=== PATIENT | female | born 1945 | race Caucasian/White ===

== ENCOUNTER 2021-06-19 00:48 | Inpatient (IN) | payer MEDICARE, BC ==
[~2021-06-19] VITALS: Ht 167.6 cm; Wt 82.3 kg
[2021-06-19 01:13] LABS: BASOPHILS ABSOLUTE AUTO 0.06 K/mm3 (0.00-0.23); BASOPHILS PERCENT AUTO 0 % (0-2); EOSINOPHILS ABSOLUTE AUTO 0.22 K/mm3 (0.00-0.68); EOSINOPHILS PERCENT AUTO 1 % (0-6); Hematocrit 36.3 % (33.0-51.0); Hemoglobin 11.5 g/dL (11.5-16.0); IMMATURE GRAN ABSOLUTE AUTO 0.12 K/mm3 (0.00-0.10); IMMATURE GRAN PERCENT AUTO 1 % (0-1); LYMPHOCYTES ABSOLUTE AUTO 4.95 K/mm3 (0.84-5.20); LYMPHOCYTES PERCENT AUTO 29 % (21-46); MONOCYTES ABSOLUTE AUTO 1.26 K/mm3 (0.16-1.47); MONOCYTES PERCENT AUTO 7 % (4-13); Mean Corpuscular HGB 30.1 pg (26.0-34.0); Mean Corpuscular HGB Conc 31.7 g/dL (31.5-36.5); Mean Corpuscular Volume 95 fL (80-100); Mean Platelet Volume 10.9 fL (9.1-12.4); NEUTROPHILS ABSOLUTE AUTO 10.45 K/mm3 (1.96-9.15); NEUTROPHILS PERCENT AUTO 61 % (41-73); Platelet Count 337 K/mm3 (150-400); RDW Coefficient Variation 13.5 % (11.7-14.2); RDW Standard Deviation 46.7 fL (35.1-46.3); Red Blood Cell Count 3.82 M/mm3 (3.80-5.20); White Blood Cell Count 17.06 K/mm3 (4.00-11.30)
[2021-06-19 01:28] LABS: Albumin, Blood 3.1 g/dL (3.4-5.0); Albumin/Globulin Ratio 0.8 (0.8-1.8); Bilirubin, Total 0.6 mg/dL (0.1-1.0); Bun/Creatinine Ratio 31.3 (12.0-20.0); Calcium, Blood 8.4 mg/dL (8.5-10.1); Creatinine, Blood 0.93 mg/dL (0.40-1.00); Potassium, Blood 4.1 mmol/L (3.5-5.5); Total Protein, Blood 7.1 g/dL (6.4-8.2)
[2021-06-19 01:40] LABS: Source, Urine Straight Cath
[2021-06-19 01:43] LABS: Bilirubin, Urine Neg (Neg); Blood, Urine Neg (Neg); Glucose Qualitative, Urine 3+ (Neg); Ketones, Urine 1+ (Neg); Leukocyte Esterase, Urine 1+ (Neg); Nitrite, Urine Neg (Neg); Protein, Urine 2+ (Neg); Specific Gravity, Urine 1.025 (1.003-1.022); Urobilinogen, Urine NORM (Normal)
[2021-06-19 01:47] LABS: Appearance, Urine Clear (Clear); Color, Urine Yellow (P-Yellow)
[2021-06-19 01:48] LABS: Bacteria Few /hpf; Mucus Light (0-Heavy); Red Blood Cells, Urine Not Seen /hpf (0-2); Squamous Epithelial Cells Few /hpf (Few)
[2021-06-19 01:49] LABS: PCO2 Arterial 39.9 mmHg (35-45); PO2 Arterial 65.4 mmHg (80-100); pH Blood Arterial 7.32 (7.35-7.45)
[2021-06-19] MEDS ORDERED: Isosorbide Mono30 MG PO (02:01)
[2021-06-19] MEDS ORDERED: AMLO5 PO (02:02)
[2021-06-19] MEDS ORDERED: ATOR80 PO (02:02)
[2021-06-19] MEDS ORDERED: ATEN25 PO (02:02)
[2021-06-19] MEDS ORDERED: CLOP75 PO (02:03)
[2021-06-19] MEDS ORDERED: EZET10 PO (02:03)
[2021-06-19] MEDS ORDERED: LISI20 PO (02:04)
[2021-06-19] MEDS ORDERED: HYDCHL25 PO (02:04)
[2021-06-19] MEDS ORDERED: CENTRUM SILVER1 EAC2 PO (02:05)
[2021-06-19] MEDS ORDERED: Calcium Carbon500 MG PO (02:10)
[2021-06-19 02:33] LABS: Influenza A, PCR NEGATIVE (NEGATIVE); Influenza B, PCR NEGATIVE (NEGATIVE); Resp Syncytial Virus, PCR NEGATIVE (NEGATIVE); SARS-Cov-2 (COVID-19) PCR, MMC NEGATIVE (NEGATIVE)
[2021-06-19] MEDS ORDERED: THERA-D2000 UNIT PO (02:39)
[2021-06-19] MEDS ORDERED: RANEXA1000 M4 PO (02:40)
[2021-06-19] MEDS ORDERED: METF500 PO (02:41)
[2021-06-19] MEDS ORDERED: MAGNESIUM250 MG PO (02:45)
[2021-06-19] MEDS ORDERED: ASPI325 PO (02:46)
[2021-06-19] MEDS ORDERED: Selenomax200 MCG PO (02:46)
[2021-06-19] MEDS ORDERED: NITR.4SL SL (02:47)
[2021-06-19 04:14] LABS: Anti-Xa UFH, PHA Monitoring <0.10 IU/mL; International Normalized Ratio 0.99; Prothrombin Time Results 10.4 Sec (9.7-11.5)
--- NOTE | 2021-06-19 04:20 | NUR ---
ARRIVAL TO ICU PT BROUGHT TO ICU AT THIS TIME. SHE IS INTUBATED WITH 7.5 TUBE, 24CM AT TEETH. VENT SETTINGS 16/450/8/50%. SHE IS RECEIVING PROPOFOL 10MCG/KGMIN. UPON ARRIVAL, SHE WAS ABLE TO SOMEWHAT OPEN EYES, NOD/SHAKE HEAD, SQUEEZE HANDS AND WIGGLE TOES. SHE DENIED PAIN BUT NODDED HEAD YES TO DISCOMFORT. PROPOFOL TITRATED TO 20MCG/KG/MIN. HEPARIN STARTED PER PHARMACY ORDER AT 15UNITS/HR WITH WEIGHT 84KG. LUNG SOUNDS CLEAR THROUGHOUT. POWERS PATENT AND DRAINING CLEAR/YELLOW URINE. VSS AT THIS TIME. SEE SHIFT ASSESSMENT.
--- NOTE | 2021-06-19 08:00 | NUR ---
PT INTUBATED WITH 7.5 ETT/24 @ TEETH. FOLLOWS SOME SIMPLE COMMANDS WITH PROPOFOL @ 25 MCG/KG/MIN. SOFT WRIST RESTRAINTS IN PLACED TO PREVENT ACCIDENTAL EXTUBATION/PULLING ON LINES AND TUBES. PT IS AFEBRILE-ECG SHOWS SR WITH RATE 60-70'S.SBP TRENDING 120'S. DR. UNDERWOOD HAS BEEN CONSULTED, BUT HAS NOT YET SEEN PT. WILL DISCUSS RANEXA AND IMDUR WITH HER THESE MEDS CAN'T BE CRUSHED. NO NOTED EDEMA. LUNGS DIMINISHED IN THE BASES, VENT:AC 16, RR 16-22, TV 450, PEEP 8, FIO2 45%-SATS>90% CARRIAGE OPERATOR HAS BEEN CONSULTED, BUT HAS NOT YET SEEN PT. OGT CLAMPED AFTER ROUTINE AM MEDS GIVEN. ABDOMEN IS OBESE, BUT SOFT WITH HYPOACTIVE BT'S X 4. POWERS TO BSD WITH 150 CC CLEAR, YELLOW, URINE TO UROMETER. SKIN IS PALE, WARM, AND DRY-NO NOTED SKIN BREAKDOWN. PT DAUGHTERS AT BEDSIDE. UPDATED TO CURRENT STATUS AND PLAN OF CARE.
--- NOTE | 2021-06-19 08:14 | NUR ---
DR. MANRIQUE AT BEDSIDE. UPDATE GIVEN. DR. MANRIQUE UPDATING FAMILY AND FURTHER DISCUSSING PLAN OF CARE.
--- NOTE | 2021-06-19 10:45 | NUR ---
DR. DELATORRE HERE TO SEE PT. V.O. TO HOLD RANEXA AND IMDUR UNTIL PT TAKING PO MEDS.
--- NOTE | 2021-06-19 12:00 | NUR ---
MAP TRENDING 60-PT GRIMACING WITH ORAL CARE AND REPOSITIONING. MED WITH FENTANYL 50 MCG IVP FOR PAIN/SEDATION ADJUNCT. PROPOFOL DRIP TITRATED DOWN TO 15 MCG/KG/MIN. ECG CONTINUES SR WITH RATE 70'S. LUNGS DIMINISHED IN THE BASES. NO VENT CHANGES-MAINTAINS SATS>90% ON FIO2 40%. SUCTION PRODUCTIVE OF SMALL AMOUNT OF THICK, OLD, BLOODY SPUTUM. OGT REMAINS CLAMPED. POWERS CONTINUES TO DRAIN ADEQUATE AMOUNT OF CLEAR, YELLOW URINE. PT DAUGHTER,SPOUSE, [id number], AND SISTER AT BEDSIDE. DR. NUNN SPOKE WITH THEM AT LENGTH REGARDING PLAN OF CARE. NO DECISION HAS BEEN MADE AT THIS POINT. FAMILY IS CAREFULLY CONSIDERING ANGIOGRAM VS. MEDICAL MANAGEMENT.
--- NOTE | 2021-06-19 13:20 | NUR ---
PT AWAKE, ALERT, GRIMACING, COUGHING, AND TRYING TO MOUTH WORD. PT ABLE TO NOD APPROPRIATELY TO "YES" OR "NO" QUESTIONS-WITH PROPOFOL @ 15MCG/KG/MIN. PT DAUGHTER TAWANA COMMUNICATED WITH PT AND ULTIMATELY, PT CONSENTS FOR ANGIOGRAM. PT MED WITH FENTANYL 50 MCG IVP X 1 FOR PAIN/SEDATION ADJUNCT. PROPOFOL DRIP TITRATED UP TO 25 MCG/KG/MIN.
--- NOTE | 2021-06-19 14:30 | NUR ---
PT TO [facility]ART [facility]ENTER FOR ANGIOGRAM-RN AND RT AT BEDSIDE.
--- NOTE | 2021-06-19 16:45 | NUR ---
RETURNED FROM HEART CENTER. S/P PTCA WITH STENT X 2. ONE TO RCA AND ONE TO MID LAD. PT REMAINS INTUBATED AND SEDATED. ECG SHOWS SR WITH FIRST DEGREE AV BLOCK WITH OCCASIONAL PAC/PVC'S. MAP TRENDING >65. PT RECEIVED 20 MG OF LASIX DURING PROCEDURE-URINE OUTPUT 1850 CC THIS SHIFT. LUNGS DIMINISHED IN THE BASES. SATS>90% ON FIO2 40%. OGT REMAINS CLAMPED NO GI DISTRESS. RIGHT FEMORAL ARTEREOTOMY SITE WITH PERCLOSE. RIGHT IS SOFT AND NONTENDER. NO HEMATOMA OR ACTIVE BLEEDING.
--- NOTE | 2021-06-19 19:19 | NUR ---
ASSUMPTION OF CARE PT REMAINS INTUBATED WITH VENT SETTINGS AC/VC 16/450/8/40%. SHE IS RECEIVING PROPOFOL 25MCG/KG/MIN AND NS TKO. R GROIN ACCESS SITE VISUALIZED WITH DAY SHIFT RN. SITE HAS SMALL BRUISE, SURROUNDING SKIN SOFT, NO ACTIVE BLEEDING AND TEGADERM CHG IN PLACE. POWERS PATENT AND DRAINING. VSS. SEE SHIFT ASSESSMENT.
[2021-06-20 03:58] LABS: BASOPHILS ABSOLUTE AUTO 0.04 K/mm3 (0.00-0.23); BASOPHILS PERCENT AUTO 0 % (0-2); EOSINOPHILS ABSOLUTE AUTO 0.36 K/mm3 (0.00-0.68); EOSINOPHILS PERCENT AUTO 3 % (0-6); Hematocrit 26.5 % (33.0-51.0); Hemoglobin 8.4 g/dL (11.5-16.0); IMMATURE GRAN ABSOLUTE AUTO 0.05 K/mm3 (0.00-0.10); IMMATURE GRAN PERCENT AUTO 0 % (0-1); LYMPHOCYTES ABSOLUTE AUTO 2.67 K/mm3 (0.84-5.20); LYMPHOCYTES PERCENT AUTO 23 % (21-46); MONOCYTES ABSOLUTE AUTO 1.14 K/mm3 (0.16-1.47); MONOCYTES PERCENT AUTO 10 % (4-13); Mean Corpuscular HGB 29.8 pg (26.0-34.0); Mean Corpuscular HGB Conc 31.7 g/dL (31.5-36.5); Mean Corpuscular Volume 94 fL (80-100); Mean Platelet Volume 10.6 fL (9.1-12.4); NEUTROPHILS ABSOLUTE AUTO 7.54 K/mm3 (1.96-9.15); NEUTROPHILS PERCENT AUTO 64 % (41-73); Platelet Count 244 K/mm3 (150-400); RDW Coefficient Variation 14.3 % (11.7-14.2); RDW Standard Deviation 48.7 fL (35.1-46.3); Red Blood Cell Count 2.82 M/mm3 (3.80-5.20)
[2021-06-20 04:18] LABS: Bun/Creatinine Ratio 23.8 (12.0-20.0); Creatinine, Blood 1.01 mg/dL (0.40-1.00); Phosphorus, Blood 3.1 mg/dL (2.5-4.9); Potassium, Blood 3.1 mmol/L (3.5-5.5)
--- NOTE | 2021-06-20 06:02 | NUR ---
SHIFT SUMMARY PT REMAINS INTUBATED WITH VENT SETTINGS AC/VC 16/450/8/35%. SHE IS RECEIVING PROPOFOL 30MCG/KG/MIN AND NS TKO. SHE WAKENS TO VERBAL STIMULI, OPENS EYES AND MAKES PURPOSEFUL MOVEMENT WITH EXTREMITIES. POWERS IS PATENT AND DRAINING TO GRAVITY WITH SHIFT OUTPUT OF 700ML. R GROIN ACCESS SITE WNL, SMALL UNCHANGED BRUISE, SURROUNDING AREA SOFT TO PALPATION AND TEGADERM IN PLACE. TMAX 100.9, CURRENT TEMP 99.2. WILL REPORT TO ONCOMING RN.
--- NOTE | 2021-06-20 08:30 | NUR ---
INITIAL ASSESSMENT PATIENT INTUBATED AND ON SEDATION. PATIENT RESPONDS TO VERBAL STIMULI AND ABLE TO SQUEEZE WITH HANDS AND WIGGLE/ LIFT FEET TO COMMAND. PAIMIUT IN R EAR- HEARING AID CHARGING ON COUNTER. SCLERAL EDEMA NOTED. PATIENT HAS TEMP OF 99.2 DEGREES FAHRENHEIT. PATIENT SHAKES HEAD "NO" WHEN ASKED IF IN PAIN. PATIENT ON AC 16, TV 450, PEEP 5 AND 30% FIO2. LUNGS WHEEZY IN UPPER LOBES AND CLEAR IN LOWER LOBES. SCANT AMOUNT OF THIN, [place] SECRETIONS NOTED FROM ETT. PATIENT IN SR, HR 60S TO 90S. SBP LOW 100S TO 120S. MURMUR NOTED. 1+ EDEMA NOTED TO BLES. OG IN PLACE; CLAMPED. NORMOACTIVE BOWEL SOUNDS NOTED. DATE OF LAST BM UNKNOWN. TEMP PROBE POWERS IN PLACE DRAINING YELLOW COLORED URINE. PATIENT RECEIVING SCHEDULED LASIX. SKIN PALE AND COOL. PERCLOSE TO R FEM- SMALL BRUISE NOTED. NO BLEEDING OR HEMATOMA NOTED. PROPOFOL AT 30 MCG/ KG/ HOUR, NS TKO. BED LOW, CALL LIGHT IN REACH. DAUGHTER AT BEDSIDE. WILL CONTINUE TO MONITOR.
--- NOTE | 2021-06-20 09:42 | NUR ---
PATIENT EXTUBATED WITH RT AND DR. MANRIQUE AT BEDSIDE AFTER PASSING SEDATION VACATION AND WEAN THIS AM. PATIENT SATTING 100% ON 2 L NC. DAUGHTER AT BEDSIDE. RESTRAINTS REMOVED. PATIENT STATES SHE IS MUCH MORE COMFORTABLE AFTER GETTING TUBE OUT.
[2021-06-20 11:44] LABS: Hematocrit 29.3 % (33.0-51.0); Hemoglobin 9.5 g/dL (11.5-16.0); Mean Corpuscular HGB 30.1 pg (26.0-34.0); Mean Corpuscular HGB Conc 32.4 g/dL (31.5-36.5); Mean Corpuscular Volume 93 fL (80-100); Mean Platelet Volume 10.5 fL (9.1-12.4); Platelet Count 261 K/mm3 (150-400); RDW Coefficient Variation 14.1 % (11.7-14.2); RDW Standard Deviation 48.2 fL (35.1-46.3); Red Blood Cell Count 3.16 M/mm3 (3.80-5.20); White Blood Cell Count 14.14 K/mm3 (4.00-11.30)
--- NOTE | 2021-06-20 12:00 | NUR ---
PATIENT HAS TEMP OF 99.9 DEGREES FAHRENHEIT. APHASIA PRESENT AND TREMORS NOTED IN L HAND WHEN USING; PATIENT AND FAMILY STATED THIS HAS BEEN HER BASELINE SINCE HER PAST CVA OCCURRED. PATIENT FAILED SWALLOW EVAL. DR. MANRIQUE INFORMED. HR IN THE 80S. SBP 1-TEENS TO 130S. OG REMOVED WHEN EXTUBATED THIS AM. GROIN SITE STABLE; NO CHANGES. BLOOD SUGAR OF 156; COVERAGE GIVEN. FAMILY REMAINS AT BEDSIDE.
--- NOTE | 2021-06-20 16:00 | NUR ---
PATIENT HAS TEMP OF 99.7 DEGREES FAHRENHEIT. HR 80S TO LOW 100S. SBP IN THE 130S. PATIENT DECREASED TO 1 L NC. GROIN SITE REMAINS UNCHANGED.
[2021-06-20] MEDS ORDERED: Cranberry400 MG PO (17:03)
[2021-06-20] MEDS ORDERED: Garlic500 MG PO (17:05)
[2021-06-20] MEDS ORDERED: INSULANI SC (17:07)
[2021-06-20] MEDS ORDERED: NOVOLOG100 UNIT/3 SQ (17:07)
--- NOTE | 2021-06-20 19:25 | NUR ---
ASSESSMENT/ASSUMED CARE PT RESTING QUIETLY. OPENS EYES TO VERBAL STIMULI. SPEECH CLEAR BUT SLOW. HX CVA. PT A&O X4. DENIES PAIN AT THIS TIME. HEART RATE 90-100'S. BP STABLE. DENEIS CHEST PAIN OR PRESSURE. WEAK CUSTOMER SERVICE ASSISTANT BUT EQUAL. TRACE BILAT LOWER EXT EDEMA. PULSES PRESENT. MOVES ALL EXT. RIGHT GROIN WITH PERCLOSE SITE. DRSG INTACT. SITE SOFT TO PALPATION. NO BLEEDING OR HEMATOMA NOTED. LUNGS CLEAR BUT DECREASED IN THE BASES ON 1 LITER O2 VIA NC. RESP EVEN AND NONLABORED. OCC NONPRODUCTIVE COUGH NOTED. BT+ ABD SOFT AND NONTENDER. DENIES N/V. WILL DO BEDSIDE SWALLOW EVAL TONIGHT. POWER GLIDE TO LEFT UPPER ARM WITH DRSG INTACT. SITE CLEAER. HEPARIN IN FUSING AT 15 UNITS/KG/HR. NEXT LAB DRAW AT 2300. IV 20G TO RIGHT AC WITH NS AT 20 ML/HR AND KCL. POWERS CATH PATENT DRAINING CLEAR YELLOW URINE. PT REPOSITIONED AND HOB UP.
--- NOTE | 2021-06-20 19:26 | NUR ---
SHIFT SUMMARY PATIENT EXTUBATED IN AM. PATIENT HAS BEEN ORIENTED BUT HAS DIFFICULTY COMMUNICATING HAS APHASIA AFTER PAST CVA. PATIENT HAD TMAX OF 100.4 DEGREES FAHRENHEIT THIS SHIFT BUT ALSO DOES NOT WANT PILES OF BLANKETS TAKEN OFF OF HER. PATIENT GIVEN PRN FENTANYL A FEW TIMES THIS SHIFT FOR COMPLAINTS OF PAIN IN BACK AND R LEG. PATIENT STATES R LEG CALF PAIN IS NORMAL FOR HER AT BASELINE AT HOME AND THAT SHE NORMALLY TAKES PAIN MEDS FOR IT. PATIENT SATTING 90% AND GREATER ON 1-2 L NC. PATIENT REMAINED IN SR, HR 60S TO LOW 100S. SBP LOW 100S TO 140S. NO BM THIS SHIFT. PATIENT REMAINS NPO FAILED BEDSIDE NURSE SWALLOW EVAL. PATIENT TO HAVE TEST AGAIN AT 2100. POWERS DRAINED 2590 MLS OF URINE THIS SHIFT. PATIENT REMAINS RECEIVING SCHEDULED DIURETIC. NO CHANGES TO SKIN NOTED. R FEM REMAINS WNL/ UNCHANGED. HEPARIN STARTED THIS SHIFT AND IS INFUSING AT 15 UNITS/ KG/ HOUR. PATIENT RECEIVED KCL REPLACEMENTS THIS SHIFT. BLOOD SUGARS 156 AND 141. FAMILY IN ROOM ALL OF SHIFT. REPORT GIVEN TO ASSUMING INSPECTOR TUBES NURSE.
--- NOTE | 2021-06-20 20:51 | NUR ---
BEDSIDE SWALLOW EVAL PT FAILED BEDSIDE SWALLOW EVAL, COUGHING AND CLEARING THROAT AFTER TAKING SIPS OF WATER. PT NPO. WILL TRY BEDSIDE SWALLOW EVAL AGAIN IN AM.
--- NOTE | 2021-06-20 22:27 | NUR ---
TEMP PT TEMP 100.5. REMOVED 3 EXTRA BLANKETS WHEN REPOSITIONING.
--- NOTE | 2021-06-20 23:16 | NUR ---
FEVER TYLENOL 650 MG SUPP GIVEN FOR TEMP 100.6
[2021-06-21 04:52] LABS: BASOPHILS ABSOLUTE AUTO 0.04 K/mm3 (0.00-0.23); BASOPHILS PERCENT AUTO 0 % (0-2); EOSINOPHILS ABSOLUTE AUTO 0.18 K/mm3 (0.00-0.68); EOSINOPHILS PERCENT AUTO 2 % (0-6); Hematocrit 28.7 % (33.0-51.0); Hemoglobin 9.2 g/dL (11.5-16.0); IMMATURE GRAN ABSOLUTE AUTO 0.05 K/mm3 (0.00-0.10); IMMATURE GRAN PERCENT AUTO 0 % (0-1); LYMPHOCYTES ABSOLUTE AUTO 1.83 K/mm3 (0.84-5.20); LYMPHOCYTES PERCENT AUTO 15 % (21-46); MONOCYTES ABSOLUTE AUTO 0.89 K/mm3 (0.16-1.47); MONOCYTES PERCENT AUTO 7 % (4-13); Mean Corpuscular HGB 29.5 pg (26.0-34.0); Mean Corpuscular HGB Conc 32.1 g/dL (31.5-36.5); Mean Corpuscular Volume 92 fL (80-100); Mean Platelet Volume 10.3 fL (9.1-12.4); NEUTROPHILS ABSOLUTE AUTO 9.25 K/mm3 (1.96-9.15); NEUTROPHILS PERCENT AUTO 76 % (41-73); Platelet Count 274 K/mm3 (150-400); RDW Coefficient Variation 13.7 % (11.7-14.2); RDW Standard Deviation 46.5 fL (35.1-46.3); Red Blood Cell Count 3.12 M/mm3 (3.80-5.20); White Blood Cell Count 12.24 K/mm3 (4.00-11.30)
[2021-06-21 05:19] LABS: Anion Gap 9 mmol/L (6-16); Blood Urea Nitrogen 16 mg/dL (8-24); Bun/Creatinine Ratio 20.9 (12.0-20.0); CO2, Blood 25 mmol/L (21-32); Calcium, Blood 8.3 mg/dL (8.5-10.1); Chloride, Blood 108 mmol/L (98-108); Creatinine, Blood 0.77 mg/dL (0.40-1.00); Glomerular Filtration Rate >60 (60-); Glucose, Blood 170 mg/dL (70-99); Potassium, Blood 3.5 mmol/L (3.5-5.5); Sodium, Blood 142 mmol/L (136-145)
--- NOTE | 2021-06-21 05:50 | NUR ---
SHIFT SUMMARY PT RESTING QUIETLY. DENIES PAIN OR DISCOMFORT. TURNED Q2HRS. FAILED BEDSIDE SWALLOW EVAL, WILL HAVE DAY SHIFT RN RETRY THIS AM. PT FOLLOWING INSTRUCTIONS AND ASSISTING WITH TURNING. FEVER DURING THE NIGHT 100.7, TYLENOL SUPP GIVEN NOW TEMP DOWN TO 98.5. HEART RATE 90-100'S. BP STABLE. LUNGS CLEAR BUT DECREASED IN THE BASES ON 1 LITER O2 VIA NC. RESP EVEN AND NONLABORED. PT CONT NPO. HEPARIN STOPPED AT 0520 DUE TO CRITICAL HIGH ANTI XA. WILL RESTART AT A LOWER RATE AT 0620. POWERS CATH PATENT DRAINING CLEAR YELLOW URINE. PT MED TWICE DURING THE NIGHT FOR ELEVATED BLOOD GLUCOSE. REPORT TO ON COMING NURSE.
--- NOTE | 2021-06-21 06:23 | NUR ---
HEPARIN RESTARTED HEPARIN AT 11 UNITS/KG/HR. NEXT ANTI XA AT 1300
--- NOTE | 2021-06-21 08:00 | NUR ---
INITIAL ASSESSMENT PATIENT ALERT AND ORIENTED. APHASIA AND L HAND TREMOR BASELINE POST CVA. [place] IN R EAR; HEARING AID PLACED. DENIES PAIN. AFEBRILE. SATTING 90% AND GREATER ON 1 L NC. IN SR, HR IN THE 80S. SBP IN THE 130S. DATE OF LAST BM UNKNOWN. PATIENT REMAINS NPO. SWALLOW EVAL TO BE PERFORMED THIS AM. POWERS DRAINING YELLOW COLORED URINE. R FEM SITE WNL- SMALL BRUISE, NO BLEEDING OR HEMATOMA NOTED. HEPARIN INFUSING AT 11 UNITS/ KG/ HOUR. DAUGHTER IN ROOM. BED LOW, CALL LIGHT IN REACH. WILL CONTINUE TO MONITOR PATIENT T/O SHIFT.
--- NOTE | 2021-06-21 10:08 | NUR ---
REPORT GIVEN TO ASSUMING PCU NURSE. PATIENT TRANSFERRED TO PCU 05.
--- NOTE | 2021-06-21 10:31 | NUR ---
TRANSFER NOTE: Pt arrived to room PCU 5 from ICU. Pt A/Ox4. LS With wheezing throughout, croupy cough noted with no production. HR reg, tachy rate in the 110's per monitor. Murmur noted. BT hyperactive. PUlses plap. Cap refil <3 sec. Pt denies pain. States her breathing is "ok". Pt is on 1L per n/c. Suazo cath draining clear, yellow urine. Pt is NPO at this time. Barrium swallow scheduled for 10:30. Pt taken to imaging. Will await return.
--- NOTE | 2021-06-21 14:50 | NUR ---
Spiritual Care Visit Visit occured right after transfer to PCU5. Pt. is in bed and welcomes my visit. Pt. does not display visceral pain. Establish rapport and give pastroal licensed professional counselor. Pt. displays evidence of peace and trust. [place] with Pt. Pt. verbalizes gratitude for the spiritual care visit.
--- NOTE | 2021-06-21 17:37 | NUR ---
SHIFT SUMMARY; Pt sitting up in chair eating dinner. Has done well since arrival to unit. Had isaacum swallow and was able to have diet increased. Pt worked with PT/OT. Was able to titrate off of oxygen. Pt was given IS education and demonstrated back. VSS. Stable at end of shift. Will report to night RN.
[2021-06-22 04:52] LABS: BASOPHILS ABSOLUTE AUTO 0.04 K/mm3 (0.00-0.23); BASOPHILS PERCENT AUTO 0 % (0-2); EOSINOPHILS ABSOLUTE AUTO 0.56 K/mm3 (0.00-0.68); EOSINOPHILS PERCENT AUTO 4 % (0-6); Hematocrit 29.5 % (33.0-51.0); Hemoglobin 9.4 g/dL (11.5-16.0); IMMATURE GRAN ABSOLUTE AUTO 0.08 K/mm3 (0.00-0.10); IMMATURE GRAN PERCENT AUTO 1 % (0-1); LYMPHOCYTES ABSOLUTE AUTO 2.46 K/mm3 (0.84-5.20); LYMPHOCYTES PERCENT AUTO 18 % (21-46); MONOCYTES ABSOLUTE AUTO 1.09 K/mm3 (0.16-1.47); MONOCYTES PERCENT AUTO 8 % (4-13); Mean Corpuscular HGB 29.8 pg (26.0-34.0); Mean Corpuscular HGB Conc 31.9 g/dL (31.5-36.5); Mean Corpuscular Volume 94 fL (80-100); Mean Platelet Volume 10.6 fL (9.1-12.4); NEUTROPHILS ABSOLUTE AUTO 9.38 K/mm3 (1.96-9.15); NEUTROPHILS PERCENT AUTO 69 % (41-73); Platelet Count 303 K/mm3 (150-400); RDW Coefficient Variation 13.6 % (11.7-14.2); RDW Standard Deviation 46.5 fL (35.1-46.3); Red Blood Cell Count 3.15 M/mm3 (3.80-5.20); White Blood Cell Count 13.61 K/mm3 (4.00-11.30)
[2021-06-22 05:11] LABS: Anion Gap 7 mmol/L (6-16); Blood Urea Nitrogen 16 mg/dL (8-24); Bun/Creatinine Ratio 23.4 (12.0-20.0); CO2, Blood 28 mmol/L (21-32); Calcium, Blood 8.6 mg/dL (8.5-10.1); Chloride, Blood 106 mmol/L (98-108); Creatinine, Blood 0.69 mg/dL (0.40-1.00); Glomerular Filtration Rate >60 (60-); Glucose, Blood 184 mg/dL (70-99); Potassium, Blood 3.2 mmol/L (3.5-5.5); Sodium, Blood 141 mmol/L (136-145)
--- NOTE | 2021-06-22 05:12 | NUR ---
SHIFT SUMMARY PT RESTED WELL THROUGH THE NIGHT. ALERT AND ORIENTED, ABLE TO MAKE NEEDS KNOWN. COOPERATIVE WITH PLAN OF CARE. TELE READS NSR, NO CP. O2 >95% ON ROOM AIR-2LNC. POWERS IN PLACE. NO BM - MIRALAX AND "BROWN COW" COMBO GIVEN - NO BM AFTER THAT. C/O COUGH - GOT PRN COUGH MEDS ORDERED. CALL LIGHT WITHIN REACH, BED IN LOWEST POSITION. WILL CONITUE TO MONITOR.
--- NOTE | 2021-06-22 13:13 | NUR ---
ADVANCE DIET NOTE ORDERS FROM DR. REED GIVEN TO ADVANCE PT DIET FROM [facility] SOFT TO ADA. UPON BEDSIDE SWALLOW EVAL PT APPEARED TO TOLERATE SIP OF WATER WELL WHILE DR WAS IN ROOM. WILL CONTINUE TO MONITOR.
--- NOTE | 2021-06-22 17:27 | NUR ---
SHIFT SUMMARY PT HAS REMAINED ALERT AND ORIENTED X 4 T/O SHIFT. SHE IS HARD OF HEARING AND HAS EXPRESSIVE APHASIA FROM PREVIOUS STROKE BUT WILL ANSWER QUESTIONS APPROPRIATELY. SPO2 HAS MAINTAINED >95% VIA RA, VITAL SIGNS ARE STABLE. RIGHT GROIN SITE HAS REMAINED UNCHANGED T/O SHIFT, IT HAS MINIMAL BRUISING AND NO APPARENT HEMATOMA OR BLEEDING. POWERS CATHETER WAS REMOVED THIS AFTERNOON PER ORDERS BY DECK MOLDER HARSHA, SUPERVISED BY THIS NURSE AND DECK MOLDER INSTRUCTOR. PT HAS VOIDED 1X SINCE CATHETER REMOVAL. SHE CONTINUED TO DENY CHEST PAIN/PRESSURE T/O SHIFT WELL DENIED FEELINGS OF NAUSEA, VOMITTING, OR OTHER PAIN. SHE HAS BEEN IN CHAIR FOR MAJORITY OF SHIFT AND IS A SBA TO AMBULATE. FAMILY HAS BEEN AT BEDSIDE FOR MAJORITY OF SHIFT. DAUGHTER TAWANA IS INVOLVED IN CARE AND WAS AT BEDSIDE. POWERGLIDE IN ANDREA AND 20G IN RIGHT FOREARM ARE SALINE LOCKED.
--- NOTE | 2021-06-23 05:11 | NUR ---
SHIFT SUMMARY PT ALERT AND ORIENTED X4. FAMILY LEAVING BEDSIDE AT SHIFT CHANGE.PT COOPERATIVE AND PLESANT DURING INTERACTION. VSS THROUGHOUT SHIFT. NORMAL SINUS RHYTHM WITH HEART RATE IN 60 - 70'S. PT DENIES CHEST PAIN OR CHEST PRESSURE. DENIES SOB. PT REPORTS THAT SHE WENT TO THE BATHROOM TWICE, NO CHANGES IN URINATION. REPORTS THAT STOOL IS A LITTLE HARD BUT THAT SHE WAS ABLE TO HAVE A BM. PT DID NOT WANT TO TAKE NIGHTTIME MIRALAX, STATED SHE "FELT SHE DID NOT NEED IT AND COULD GO ON HER OWN." PT RESTED THROUGHOUT MOST OF THE SHIFT. BED IN LOWEST POSITIION AND CALL LIGHT WITHIN REACH. WILL CONTINUE TO MONITOR AND REPORT TO ONCOMING RN
--- NOTE | 2021-06-23 05:48 | NUR ---
PT REPORTS SHE HAS BEEN INDEPENDENTLY USING THE RESTROOM. REPORTS VOIDING X2 WITH NO CHANGES. DENIES PAIN, BURNING OR CHANGE IN FREQUENCY. PT ALSO REPORTS SMALL BM. PT REPORTS STOOL WAS SMALL AND HARD.
[2021-06-23 08:46] LABS: BASOPHILS ABSOLUTE AUTO 0.04 K/mm3 (0.00-0.23); BASOPHILS PERCENT AUTO 0 % (0-2); EOSINOPHILS ABSOLUTE AUTO 0.66 K/mm3 (0.00-0.68); EOSINOPHILS PERCENT AUTO 7 % (0-6); Hemoglobin 9.6 g/dL (11.5-16.0); IMMATURE GRAN ABSOLUTE AUTO 0.03 K/mm3 (0.00-0.10); IMMATURE GRAN PERCENT AUTO 0 % (0-1); LYMPHOCYTES ABSOLUTE AUTO 2.17 K/mm3 (0.84-5.20); LYMPHOCYTES PERCENT AUTO 22 % (21-46); MONOCYTES PERCENT AUTO 9 % (4-13); Mean Corpuscular HGB 29.9 pg (26.0-34.0); Mean Corpuscular Volume 94 fL (80-100); Mean Platelet Volume 10.4 fL (9.1-12.4); NEUTROPHILS ABSOLUTE AUTO 5.96 K/mm3 (1.96-9.15); NEUTROPHILS PERCENT AUTO 61 % (41-73); Platelet Count 358 K/mm3 (150-400); RDW Coefficient Variation 13.2 % (11.7-14.2); RDW Standard Deviation 45.8 fL (35.1-46.3); Red Blood Cell Count 3.21 M/mm3 (3.80-5.20); White Blood Cell Count 9.76 K/mm3 (4.00-11.30)
[2021-06-23 09:02] LABS: Bun/Creatinine Ratio 18.7 (12.0-20.0); Calcium, Blood 8.8 mg/dL (8.5-10.1); Creatinine, Blood 0.7 mg/dL (0.40-1.00); Magnesium, Blood 2.2 mg/dL (1.6-2.4); Potassium, Blood 3.8 mmol/L (3.5-5.5)
[2021-06-23] MEDS ORDERED: METO25 PO (14:55)
[2021-06-23] MEDS ORDERED: MASOPHEN325 M3 PO (14:58)
[2021-06-23] MEDS ORDERED: ELIQUIS2.5 MG PO (14:59)
[2021-06-23] MEDS ORDERED: FURO40 PO (15:00)
[2021-06-23] MEDS ORDERED: MIRALAX17 GM PO (15:01)
[2021-06-23] MEDS ORDERED: POTA10T PO (15:03)
--- NOTE | 2021-06-23 18:24 | NUR ---
DISCHARGE UPDATE DISCHARGE PACKET GONE OVER WITH PT AND PT DAUGHTER AT 1730. PT AND DAUGHTER EDUCATED ON INSULIN SLIDING SCALE AND ADMINISTRATION BASED OFF OF BLOOD SUGAR LEVELS. PT USED TEACH BACK METHOD TO DEMONSTRATE UNDERSTANDING. PT EDUCATED ON PROPER ADMINISTRATION OF INSULIN, STRESSING ON THE IMPORTANCE OF INFECTION PREVENTION AND PRIMING THE NEEDLES. PT VERBALIZED UNDERSTANDING. DICHARGE PACKET IN BAG AND WITH DAUGHTER DURING DISCHARGE. DISCHARGE PACKET INCLUDED INFORMATION PACKETS ON INSULINS, INSULIN ADMINISTRATION, AND SLIDING SCALES. PT LEFT UNIT AT 1816 VIA WHEELCHAIR AND ON RA. PT ABLE TO DRESS SELF AND TRANSFER SELF TOP AND FROM WHEELCHAIR, TOLERATED WELL.
== END 2021-06-23 18:23 | disposition home health service (06) | DRG 246 ==
LOC: ER 00:48 → ICUW 04:00 → ICUE 04:00 → PCU 06-21 10:00
PROVIDERS: Internal Medicine; Internal Medicine Critical Care Medicine; Internal Medicine Interventional Cardiology; Student in an Organized Health Care Education/Training Program; ADMIT Internal Medicine
PROC: 4A023N7 Measurement of Cardiac Sampling and Pressure, Left Heart, Percutaneous Approach (ICD-10-PCS; principal; 2021-06-19)
PROC: 027135Z Dilation of Coronary Artery, Two Arteries with Two Drug-eluting Intraluminal Devices, Percutaneous Approach (ICD-10-PCS; 2021-06-19)
PROC: B2111ZZ Fluoroscopy of Multiple Coronary Arteries using Low Osmolar Contrast (ICD-10-PCS; 2021-06-19)
PROC: 0BH18EZ Insertion of Endotracheal Airway into Trachea, Via Natural or Artificial Opening Endoscopic (ICD-10-PCS; 2021-06-19)
PROC: 5A1945Z Respiratory Ventilation, 24-96 Consecutive Hours (ICD-10-PCS; 2021-06-19)
DX: I21.4 Non-ST elevation (NSTEMI) myocardial infarction (principal); J96.01 Acute respiratory failure with hypoxia; I50.21 Acute systolic (congestive) heart failure; E87.2 Acidosis; I13.0 Hypertensive heart and chronic kidney disease with heart failure and stage 1 through stage 4 chronic kidney disease, or unspecified chronic kidney disease; I42.9 Cardiomyopathy, unspecified; N17.9 Acute kidney failure, unspecified; I35.0 Nonrheumatic aortic (valve) stenosis; Z20.822 Contact with and (suspected) exposure to COVID-19; R13.10 Dysphagia, unspecified; I25.10 Atherosclerotic heart disease of native coronary artery without angina pectoris; D72.829 Elevated white blood cell count, unspecified; E11.22 Type 2 diabetes mellitus with diabetic chronic kidney disease; N18.30 Chronic kidney disease, stage 3 unspecified; R41.89 Other symptoms and signs involving cognitive functions and awareness; Z95.5 Presence of coronary angioplasty implant and graft; Z86.73 Personal history of transient ischemic attack (TIA), and cerebral infarction without residual deficits; Z88.0 Allergy status to penicillin; Z79.82 Long term (current) use of aspirin; Z79.84 Long term (current) use of oral hypoglycemic drugs; Z79.899 Other long term (current) drug therapy
CPT/HCPCS: 0241U; 31500; 36415; 36600; 71045; 74230; 76937; 80048; 80053; 81001; 82803; 82947; 83605; 83690; 83735; 83880; 84100; 84484; 85025; 85027; 85347; 85520; 85610; 87040; 87070; 87086; 87205; 92526; 92610; 92611; 93005; 93010; 93458; 94002; 94003; 96361; 96365; 96375; 97110; 97116; 97162; 97165; 97530; 97535; 99152; 99153; 99285-25; A9270; C1725; C1751; C1760; C1769; C1874; C1887; C1894; C8923; C9600; J0456; J0696; J1644; J1815; J1940; J2704; J3010; J3480; J7030; J7040; J7060; Q9957; Q9967

== ENCOUNTER → 2022-11-28 | Outpatient (CLI) | payer MEDICARE, BC ==
[~2022-11-28] MED LIST: AMLO5 PO; ASPI325 PO; ATEN25 PO; ATOR80 PO; CENTRUM SILVER1 EAC2 PO; CLOP75 PO; Calcium Carbon500 MG PO; Cranberry400 MG PO; ELIQUIS2.5 MG PO; EZET10 PO; FURO40 PO; Garlic500 MG PO; HYDCHL25 PO; INSULANI SC; Isosorbide Mono30 MG PO; LISI20 PO; MAGNESIUM250 MG PO; MASOPHEN325 M3 PO; METF500 PO; METO25 PO; MIRALAX17 GM PO; NITR.4SL SL; NOVOLOG100 UNIT/3 SQ; POTA10T PO; RANEXA1000 M4 PO; Selenomax200 MCG PO; THERA-D2000 UNIT PO
[2022-11-29 11:41] LABS: Candida species (DNA Probe) Negative (NEGATIVE); G. vaginalis (DNA Probe) Negative (NEGATIVE); T. vaginalis (DNA Probe) Negative (NEGATIVE)
== END ==
LOC: LAB 17:34 → LAB SHORT 17:34
PROVIDERS: Physician Assistant
DX: B37.31 Acute candidiasis of vulva and vagina (principal)
CPT/HCPCS: 87480; 87510; 87660

== ENCOUNTER 2024-02-17 19:43 | Emergency (ER) | payer MEDICARE, BC ==
[~2024-02-17] VITALS: Ht 162.6 cm; Wt 80.7 kg
[~2024-02-17 19:43] MED LIST changes: +Aspir 8181 MG PO; +B-12500 MC2 PO; +Crestor40 MG PO; +INSULANI; +JARDIANCE25 MG PO; +KETO.5OPSO RIGHTEYE; +LOSA25; +OCUFLOX511 RIGHTEYE; +POTA10T; +PREDNISOLO15 MG/5 ML RIGHTEYE; +TRULICITY3 MG/0.5 M
[2024-02-17 20:06] LABS: BASOPHILS ABSOLUTE AUTO 0.05 K/mm3 (0.00-0.23); BASOPHILS PERCENT AUTO 1 % (0-2); EOSINOPHILS ABSOLUTE AUTO 0.19 K/mm3 (0.00-0.68); EOSINOPHILS PERCENT AUTO 3 % (0-6); Hematocrit 35.1 % (33.0-51.0); Hemoglobin 11.9 g/dL (11.5-16.0); IMMATURE GRAN ABSOLUTE AUTO 0.03 K/mm3 (0.00-0.10); IMMATURE GRAN PERCENT AUTO 0 % (0-1); LYMPHOCYTES ABSOLUTE AUTO 2.49 K/mm3 (0.84-5.20); LYMPHOCYTES PERCENT AUTO 33 % (21-46); MONOCYTES ABSOLUTE AUTO 0.65 K/mm3 (0.16-1.47); MONOCYTES PERCENT AUTO 9 % (4-13); Mean Corpuscular HGB 31.1 pg (26.0-34.0); Mean Corpuscular HGB Conc 33.9 g/dL (31.5-36.5); Mean Corpuscular Volume 92 fL (80-100); Mean Platelet Volume 9.9 fL (9.1-12.4); NEUTROPHILS ABSOLUTE AUTO 4.14 K/mm3 (1.96-9.15); NEUTROPHILS PERCENT AUTO 55 % (41-73); Platelet Count 216 K/mm3 (150-400); RDW Coefficient Variation 12.8 % (11.7-14.2); RDW Standard Deviation 43.2 fL (35.1-46.3); Red Blood Cell Count 3.83 M/mm3 (3.80-5.20); White Blood Cell Count 7.55 K/mm3 (4.00-11.30)
[2024-02-17 20:25] LABS: Albumin, Blood 3.4 g/dL (3.4-5.0); Bilirubin, Total 0.4 mg/dL (0.1-1.0); Bun/Creatinine Ratio 27.3 (12.0-20.0); Calcium, Blood 8.6 mg/dL (8.5-10.1); Creatinine, Blood 0.84 mg/dL (0.40-1.00); Globulin, Blood 3.4 g/dL (2.2-4.0); Potassium, Blood 4.2 mmol/L (3.5-5.5); Total Protein, Blood 6.8 g/dL (6.4-8.2)
[2024-02-17] MEDS ORDERED: Aspirin 325 MG Tab PO ONE (20:30)
[2024-02-17] MEDS ORDERED: Aspirin 81 MG TabEC PO ONE (20:50)
[2024-02-17] MEDS ORDERED: Nitroglycerin 0.4 MG SUBL SL ONE (21:05)
[2024-02-18 01:12] VITALS: BP 110/53
== END 2024-02-18 01:16 | disposition home or self-care (01) ==
LOC: ER 19:43
PROVIDERS: Physician Assistant
DX: R07.9 Chest pain, unspecified (principal); R20.0 Anesthesia of skin; E11.9 Type 2 diabetes mellitus without complications; I25.2 Old myocardial infarction; Z95.5 Presence of coronary angioplasty implant and graft; Z86.73 Personal history of transient ischemic attack (TIA), and cerebral infarction without residual deficits; Z79.4 Long term (current) use of insulin; Z79.82 Long term (current) use of aspirin; Z79.02 Long term (current) use of antithrombotics/antiplatelets; Z79.899 Other long term (current) drug therapy; Z88.0 Allergy status to penicillin; Z88.8 Allergy status to other drugs, medicaments and biological substances
CPT/HCPCS: 70450; 71046; 80053; 84484; 85025; 93005; 93010; 99285-25; A9270

== ENCOUNTER 2024-02-28 08:44 | Day surgery (SDC) | payer MEDICARE, BC ==
[2024-02-28] VITALS (9 sets, daily range): BP systolic 111–140; BP diastolic 54–66
[~2024-02-28 08:44] MED LIST changes: +FISH OIL 1,0001 EA10 PO
[2024-02-28] MEDS ORDERED: NS 250 ML IV ONE (10:18)
[2024-02-28] MEDS ORDERED: NS 1,000 ML IV ONE ×2 (10:18→10:24)
[2024-02-28] MEDS ORDERED: Heparin Sodium 1000 Units/ML 10ML MDV ONE (10:18)
[2024-02-28] MEDS ORDERED: Verapamil HCL 2.5 MG/ML 2ML Injection ONE (10:18)
[2024-02-28] MEDS ORDERED: Midazolam HCl 1MG / ML 2ML Vial ONE (10:24)
[2024-02-28] MEDS ORDERED: DiphenhydrAMINE HCl 50 MG/ML 1ML Vial ONE (10:24)
[2024-02-28] MEDS ORDERED: FentaNYL Citrate 50 MCG/ML 2 ML Injection ONE (10:24)
[2024-02-28] MEDS ORDERED: CRANBERRY (10:47)
[2024-02-28] MEDS ORDERED: CALCIUM (10:48)
[2024-02-28] MEDS ORDERED: DOCU100 PO (10:48)
--- NOTE | 2024-02-28 11:39 | NUR ---
pt to recovery from lab. pt resting w/ eyes closed. radial site soft. no bleeding noted.
--- NOTE | 2024-02-28 11:50 | NUR ---
DR PARKER DISCUSSING FINDINGS AND FUTURE PLAN OF CARE W/ PT'S DAUGHTER.
--- NOTE | 2024-02-28 11:54 | NUR ---
R RADIAL SITE SOFT AND NON-TENDER PER PT. NO BLEEDING NOTED.
--- NOTE | 2024-02-28 12:22 | NUR ---
pt given warm blanket per request. anai morales placed by valentin rocha.
--- NOTE | 2024-02-28 12:24 | NUR ---
r radial site soft and non-tedner per pt. no bleeding noted. pt sitting up in bed.
--- NOTE | 2024-02-28 12:57 | NUR ---
INITIAL 2 CC OF AIR REMOVED FROM RIGHT RADIAL TR BAND. SITE C/D/I SOFT/NONTENDER, NO EVIDENCE OF BLEEDING. VSS ON RA. PATIENT DENYING ANY PAIN. PATIENT SITTING COMFORTABLY IN BED TOLERATING PO INTAKE WELL.
--- NOTE | 2024-02-28 13:26 | NUR ---
ALL AIR REMOVED FROM RIGHT RADIAL TR BAND. SITE C/D/I SOFT/NONTENDER, NO EVIDENCE OF BLEEDING. VSS ON RA. PATIENT DENYING ANY PAIN.
--- NOTE | 2024-02-28 14:00 | NUR ---
PATIENT DISCHARGE INSTRUCTIONS REVIEWED WITH PATIENT AND SPOUSE. ALL QUESTIONS WERE ANSWERED. VSS ON RA
--- NOTE | 2024-02-28 14:08 | NUR ---
TR BAND REMOVED, CLOTH DOT AND ARM BOARD IN PLACE. SITE C/D/I SOFT/NONTENDER, NO EVIDENCE OF BLEEDING. VSS ON RA. PIV RMEOVED WITHOUT DIFFICULTY, CATHETER INTACT. PATIENT WHEELED TO HOSPITAL ENTRANCE AND DAUGHTER ABLE TO PROVIDE TRANSPORTATION HOME.
== END 2024-02-28 14:12 | disposition home or self-care (01) ==
LOC: MHTC 08:44
DX: I25.708 Atherosclerosis of coronary artery bypass graft(s), unspecified, with other forms of angina pectoris (principal); I25.2 Old myocardial infarction; E11.42 Type 2 diabetes mellitus with diabetic polyneuropathy; I10 Essential (primary) hypertension; E78.5 Hyperlipidemia, unspecified; I69.959 Hemiplegia and hemiparesis following unspecified cerebrovascular disease affecting unspecified side; F03.90 Unspecified dementia, unspecified severity, without behavioral disturbance, psychotic disturbance, mood disturbance, and anxiety; Z95.5 Presence of coronary angioplasty implant and graft; Z79.82 Long term (current) use of aspirin; Z79.4 Long term (current) use of insulin; Z79.84 Long term (current) use of oral hypoglycemic drugs; Z79.02 Long term (current) use of antithrombotics/antiplatelets; Z79.899 Other long term (current) drug therapy; Z88.0 Allergy status to penicillin; Z88.8 Allergy status to other drugs, medicaments and biological substances
CPT/HCPCS: 36415; 76937; 80048; 85007; 85027; 85610; 93454; 99152; 99153; C1769; C1887; C1894; J1200; J1644; J2250; J3010; J7030; J7050; Q9967